=== PATIENT | female | born 1995 | race Caucasian/White ===

== ENCOUNTER 2023-05-11 22:43 | Emergency (ER) | payer BC ==
[2023-05-11] MEDS ORDERED: Metoprolol Tartrate 25 MG Tab PO ONE (23:03)
[2023-05-11] MEDS ORDERED: Sodium Chloride 0.9% 10 ML Syringe FLUSH PRN (23:04)
[2023-05-11 23:15] LABS: BASOPHILS PERCENT AUTO 0.3 % (0.0-1.0); EOSINOPHILS PERCENT AUTO 0.8 % (1.0-3.0); HEMATOCRIT 44.1 % (37.0-47.0); HEMOGLOBIN 15.1 g/dL (12.0-16.0); LYMPHOCYTES PERCENT AUTO 25.2 % (20.5-50.1); MEAN CORPUSCULAR HEMOGLOBIN 29.5 pg (27.0-34.0); MEAN CORPUSCULAR HGB CONC 34.2 g/dL (33.0-35.0); MEAN CORPUSCULAR VOLUME 86.3 fL (80-100); MONOCYTES PERCENT AUTO 5.8 % (2-8); NEUTROPHILS PERCENT AUTO 67.9 % (42.2-75.2); PLATELET COUNT,PLT 282 10^3/uL (150-450); RED BLOOD CELL COUNT 5.11 10^6/uL (4.2-5.4); WHITE BLOOD CELL COUNT,WBC 11.3 10^3/uL (5.0-10.0)
[2023-05-11] MEDS ORDERED: Ondansetron 4 MG Tab.DIS PO ONE (23:39)
[2023-05-11 23:43] LABS: ANION GAP 10.3 mEq/L (7-13); BLOOD UREA NITROGEN,BUN 13 mg/dL (7-18); CALCIUM 9.2 mg/dL (8.5-10.1); CARBON DIOXIDE,CO2 29 mmol/L (21-32); CHLORIDE,CL 101 mmol/L (98-107); CREATININE 0.82 mg/dL (0.55-1.02); GLUCOSE RANDOM 110 mg/dL (70-99); MAGNESIUM 1.8 mg/dL (1.8-2.4); POTASSIUM,K 3.3 mmol/L (3.5-5.1); SODIUM,NA 137 mmol/L (136-145); TSH ULTRASENSITIVE 1.91 uIU/mL (0.36-3.74)
[2023-05-11 23:44] LABS: ESTIMATED GFR 101 mL/min (>=60)
[2023-05-11] MEDS ORDERED: Potassium Chloride 10 MEQ Tab.ER PO ONE (23:45)
[2023-05-11] MEDS ORDERED: ALPRAZolam 0.25 MG Tab PO ONE (23:52)
== END 2023-05-12 00:18 | disposition home or self-care (01) ==
LOC: DL.ED 22:43
DX: R00.2 Palpitations (principal); E87.6 Hypokalemia
CPT/HCPCS: 36415; 80048; 83735; 84443; 84484; 85025; 93005; 93010; 99284; 99285; A9270-GY; J3490